=== PATIENT | female | born 1955 | race Caucasian/White ===

== ENCOUNTER → 2018-11-10 | Outpatient (CLI) | payer OTHER ==
[2018-11-11 15:07] LABS: HPV 16 Negative (Negative); HPV 18 Negative (Negative); HPV OTHER HR TYPES Negative (Negative)
== END | disposition home or self-care (01) ==
LOC: LAB 11:44 → LAB SHORT 11:44
PROVIDERS: Nurse Practitioner Family
DX: Z01.419 Encounter for gynecological examination (general) (routine) without abnormal findings (principal)
CPT/HCPCS: 87624; G0123

== ENCOUNTER 2024-06-17 12:32 | Day surgery (SDC) | payer OTHER ==
[~2024-06-17] VITALS: Ht 154.9 cm; Wt 75.7 kg
[~2024-06-17 12:32] MED LIST: Balanced Salt Epinephrine Irrigation Solution 500 mL IR SCH; Lidocaine HCl/Pf 1% 5 ML VIAL XX SCH; Moxifloxacin HCL 0.5 MG/0.1 ML 0.4MLSYR RIGHTEYE SCH; NS 500 ML IV ONE; PHENYLEPHRINE\\TROPICAMIDE\\TETRACAINE OPHTHALMIC DILATING SOLN RIGHTEYE PRN; Povidone-Iodine 450 DROP/30 ML Solution ONE; Povidone-Iodine 450 DROP/30 ML Solution RIGHTEYE SCH; Tetracaine HCl/Pf 0.5% Opth Soln 4 ml ONE
[2024-06-17] MEDS ORDERED: Diazepam 10 MG Tab ONE ×2 (12:45→12:47)
[2024-06-17] MEDS ORDERED: LEVSOD75 PO (13:27)
[2024-06-17 14:51] VITALS: BP 157/69
[2024-06-18] MEDS ORDERED: ALBU90OI INH (14:04)
== END 2024-06-17 15:10 | disposition home or self-care (01) ==
LOC: ORSCSDS 12:32
PROVIDERS: Student in an Organized Health Care Education/Training Program
PROC: 08RJ3JZ Replacement of Right Lens with Synthetic Substitute, Percutaneous Approach (ICD-10-PCS; principal; 2024-06-17 14:00)
DX: H25.813 Combined forms of age-related cataract, bilateral (principal); I10 Essential (primary) hypertension; E66.9 Obesity, unspecified; Z68.31 Body mass index [BMI] 31.0-31.9, adult; H25.811 Combined forms of age-related cataract, right eye; Z79.899 Other long term (current) drug therapy
CPT/HCPCS: A9270; J7040; V2632

== ENCOUNTER 2024-06-30 10:53 | Day surgery (SDC) | payer OTHER ==
[~2024-06-30] VITALS: Ht 152.4 cm; Wt 76.7 kg
[~2024-06-30 10:53] MED LIST changes: +ALBU90OI INH; +LEVSOD75 PO; +Moxifloxacin HCL 0.5 MG/0.1 ML 0.4MLSYR LEFTEYE SCH; -Moxifloxacin HCL 0.5 MG/0.1 ML 0.4MLSYR RIGHTEYE SCH; +PHENYLEPHRINE\\TROPICAMIDE\\TETRACAINE OPHTHALMIC DILATING SOLN LEFTEYE PRN; -PHENYLEPHRINE\\TROPICAMIDE\\TETRACAINE OPHTHALMIC DILATING SOLN RIGHTEYE PRN; +Povidone-Iodine 450 DROP/30 ML Solution LEFTEYE SCH; -Povidone-Iodine 450 DROP/30 ML Solution RIGHTEYE SCH
[2024-06-30] MEDS ORDERED: NS 500 ML IV ONE (12:02)
--- NOTE | 2024-06-30 12:02 | NUR ---
06/30/24 1202 Joseph Strange CALL LIGHT WITHIN REACH. TETRACAINE IN AT 1154 AND PLEDGETT IN AT 1155
[2024-06-30] MEDS ORDERED: Midazolam HCl 1MG / ML 2ML Vial ONE (12:20)
[2024-06-30] MEDS ORDERED: FentaNYL Citrate 50 MCG/ML 2 ML Injection ONE (12:20)
[2024-06-30 13:04] VITALS: BP 128/76
== END 2024-06-30 13:20 | disposition home or self-care (01) ==
LOC: ORSCSDS 10:53
PROVIDERS: Student in an Organized Health Care Education/Training Program
PROC: 08RK3JZ Replacement of Left Lens with Synthetic Substitute, Percutaneous Approach (ICD-10-PCS; principal; 2024-06-30 12:30)
DX: H25.812 Combined forms of age-related cataract, left eye (principal); Z96.1 Presence of intraocular lens; E03.9 Hypothyroidism, unspecified; E78.5 Hyperlipidemia, unspecified; J45.909 Unspecified asthma, uncomplicated; E66.9 Obesity, unspecified; Z68.33 Body mass index [BMI] 33.0-33.9, adult; Z79.899 Other long term (current) drug therapy
CPT/HCPCS: 82947; J2250; J3010; J7040; V2632